=== PATIENT | female | born 1955 | race Caucasian/White ===

== ENCOUNTER → 2020-10-10 | Outpatient (CLI) | payer OTHER ==
[~2020-10-10] VITALS: Ht 165.1 cm; Wt 64.4 kg
[~2020-10-10] MED LIST: EVISTA60 MG PO
--- NOTE | 2020-10-11 13:25 | P ---
[facility] [place] [address] PROCEDURE REPORT Name: GABRIELA ALONSO Room #: REG LEIDY Lugo#: [id number] Admission: 10/10/20 Attend Phys: Ariel Praish Discharge: Date of : 53 Report #: [id number] THIS REPORT FOR: cc: Franci Jones MD, Kerry B. MD McElhinney, Christian C. MD ~ cc: Franci Jones MD DATE OF SERVICE: 10/10/2020 PROCEDURE PERFORMED: Upper endoscopy with biopsies. HISTORY OF PRESENT ILLNESS: The patient is a 65-year-old female who was seen in the office by myself on 08/28/2020 for gastroesophageal reflux disease. In the past, she had been on PPI therapy with fairly good control. However, she has a history of osteopenia and discontinue PPI therapy, now is rarely using Pepcid approximately two times per week. She does report intermittent heartburn symptoms. She denies any dysphagia or odynophagia. No nausea or vomiting. Previous upper endoscopy in 2012 was negative, however, it appeared she was on PPI therapy. Plan is to repeat upper endoscopy at this time. DESCRIPTION OF PROCEDURE: The risks and benefits of the procedure were explained to the patient, those risks including but not limited to bleeding, perforation and the risk of sedation. She understood these risks and gave me informed consent. Sedation was given using propofol per anesthesia. Next, using a standard Olympus upper endoscope, the scope was placed in the patient's mouth and advanced under direct vision through the esophagus, stomach and into the second portion of the duodenum. The larynx was normal in appearance. The upper and mid esophagus was normal. In the distal esophagus, no evidence of erosive esophagitis was noted. A small pink mucosal tongue was noted approximately 1 cm above the GE junction. Biopsies were obtained to rule out the possibility of Lozada's esophagus. Overall, the gastric mucosa was normal. The pylorus was normal and patent. The duodenal bulb, first and second portion were all normal. The scope was then withdrawn and the procedure terminated. The patient tolerated the procedure well. IMPRESSION: 1. Possible short segment Lozada's esophagus. 2. Otherwise, normal upper endoscopy. RECOMMENDATIONS: 1. Await biopsy results. 2. If biopsies show Lozada's esophagus, I would recommend PPI therapy daily. If, however, biopsies are negative, the patient could continue current regimen of Pepcid on a p.r.n. basis. [address] [address] PROCEDURE REPORT Name: GABRIELA ALONSO Room #: REG [facility]#: [id number] Admission: 10/10/20 Attend Phys: Ariel Parish Discharge: Date of : 53 Report #: [id number] Thank you for allowing me to participate in her care. <ELECTRONICALLY SIGNED> By: Ariel Ny MD 10/11/20 1325 [id number] [id number] Ariel Ny MD /effie
--- NOTE | 2020-10-16 11:07 | PATH ---
[facility] [address] [place] [address] PATHOLOGY RPT PROCEDURE Name: GABRIELA ALONSO Room #: REG LEIDY Lugo#: [id number] Admission: 10/10/20 Date of : 53 Discharge: Report #: [id number] Path Case #: [id number] [facility] Accession Number: [id number] . 01 Material submitted: . esophagus - BIOPSY DISTAL ESOPHAGUS RULE OUT BARRETTS. Modifiers: distal . 01 Clinical history: . DTS/EGD/REFLUX . 02 Diagnosis: Gastroesophageal mucosa, distal esophagus, endoscopic biopsy: - Gastric cardia-type mucosa with mild chronic inflammation. - Squamous mucosa with mild esophagitis and features compatible with reflux esophagitis. - Negative for intestinal metaplasia or dysplasia. (IUV:lupe; 10/15/2020) QMS 10/15/2020 1757 Local . 02 Electronically signed: . Rossy Cooley MD, Pathologist NPI- [id number] . 01 Gross description: . The specimen is received in formalin, labeled "[place], [place], BX distal esophagus". Received are 2 segments of pale berg tissue ranging in size from 0.3 to 0.4 cm in maximum dimensions. The specimen is submitted entirely in cassette A1.([facility]; 10/12/2020) [facility] 10/12/[address] [place] [address] . 02 Pathologist provided ICD-10: K29.50, K21.9 . 02 CPT . 444159 Specimen Comment: A courtesy copy of this report has been sent to [phone] Specimen Comment: Report sent to Performed at: [address] [id number] MD Ermias Hernandez MD Phone: [phone] Performed at: [address] [id number] MD Rossy Cooley MD Phone: [phone]
== END | disposition home or self-care (01) ==
LOC: GI 07:22
PROVIDERS: ATTEND Specialist
DX: R12 Heartburn (principal); K29.50 Unspecified chronic gastritis without bleeding; K21.00 Gastro-esophageal reflux disease with esophagitis, without bleeding; E78.5 Hyperlipidemia, unspecified; Z98.890 Other specified postprocedural states; Z85.828 Personal history of other malignant neoplasm of skin; Z90.49 Acquired absence of other specified parts of digestive tract; Z90.710 Acquired absence of both cervix and uterus; Z88.6 Allergy status to analgesic agent
CPT/HCPCS: 62110; 62900